=== PATIENT | female | born 1940 | race Caucasian/White ===

== ENCOUNTER → 2017-01-16 | Outpatient (CLI) | payer MEDICARE, MEDICAID ==
[~2017-01-16] MED LIST: GLIP5TAB10 PO; METF10002 PO; METF500T4 PO; QUET100T PO; QUET400T PO; QUETIAPINE PO
[2017-01-17 11:47] LABS: ASPARTATE AMINO TRANSFERASE 14 U/L (15-37); BLOOD UREA NITROGEN 20 mg/dL (7-18)
== END | disposition home or self-care (01) ==
LOC: STAR 05:12
PROVIDERS: ATTEND Urology
DX: Z01.818 Encounter for other preprocedural examination (principal); R79.1 Abnormal coagulation profile
CPT/HCPCS: 36415; 80053; 81001; 85025; 85610; 85730; 87086; 93005

== ENCOUNTER 2017-01-23 08:39 | Day surgery (SDC) | payer MEDICARE, MEDICAID ==
[~2017-01-23] VITALS: Ht 170.2 cm; Wt 86.5 kg
[2017-01-23] MEDS ORDERED: LACTATED RINGERS 1,000 ML IV SCH (10:36)
[2017-01-23 10:37] VITALS: BP 134/85
[2017-01-23] MEDS ORDERED: FENTANYL PF 100 MCG/2ML ONE ×2 (12:03→14:21)
[2017-01-23] MEDS ORDERED: ONDANSETRON 2MG/ML, 2ML ONE (12:36)
[2017-01-23] MEDS ORDERED: PROPOFOL 10 MG/ML, 20ML ONE (12:36)
[2017-01-23] MEDS ORDERED: GLYCOPYRROLATE 0.2MG/1ML ONE (12:36)
[2017-01-23] MEDS ORDERED: ROCURONIUM 10 MG/ML ONE (12:36)
[2017-01-23] MEDS ORDERED: NEOSTIGMINE 1 MG/ML, 10ML ONE (12:36)
[2017-01-23] MEDS ORDERED: CEFAZOLIN 1,000 MG ONE (12:36)
[2017-01-23] MEDS ORDERED: hydrALAzine 20 MG/ML, 1ML IV PRN (14:00)
[2017-01-23] MEDS ORDERED: ALBUTEROL SULFATE 2.5 MG/3 ML NPPB PRN (14:00)
[2017-01-23] MEDS ORDERED: ACETAMINOPHEN 325 MG TABLET PO PRN (14:00)
[2017-01-23] MEDS ORDERED: MEPERIDINE/PF 25MG/0.5ML IVPush PRN (14:00)
[2017-01-23] MEDS ORDERED: METOPROLOL 1 MG/ML, 5ML IV PRN (14:00)
[2017-01-23] MEDS ORDERED: OXYcodone 5 MG/5 ML ORAL.SOL UDC PO PRN (14:00)
[2017-01-23] MEDS ORDERED: HYDROmorphone 1 MG/ML, 1ML IV PRN (14:00)
[2017-01-23] MEDS ORDERED: OXYcodone 5 MG/5 ML ORAL.SOL UDC ONE (14:21)
[2017-01-23] MEDS: FENTANYL PF 100 MCG/2ML IV PRN ×2 (14:22→14:34)
== END 2017-01-23 15:20 ==
LOC: OUT 08:39
PROVIDERS: ATTEND Urology
DX: N20.0 Calculus of kidney (principal); I10 Essential (primary) hypertension; E11.9 Type 2 diabetes mellitus without complications; F15.90 Other stimulant use, unspecified, uncomplicated; Z79.82 Long term (current) use of aspirin; Z87.440 Personal history of urinary (tract) infections; Z87.39 Personal history of other diseases of the musculoskeletal system and connective tissue; Z98.890 Other specified postprocedural states; Z81.8 Family history of other mental and behavioral disorders
CPT/HCPCS: 50590; 52005; 74000; 82962; J0690; J2405; J2704; J2710; J3010; J7120; J3490

== ENCOUNTER 2017-06-01 02:45 | Emergency (ER) | payer MEDICARE, MEDICAID ==
[~2017-06-01] VITALS: Ht 172.7 cm; Wt 86.0 kg
[2017-06-01] MEDS ORDERED: METF500T4 PO (03:10)
[2017-06-01] MEDS ORDERED: LEVO750T26 PO (03:10)
[2017-06-01] MEDS ORDERED: QUET400T4 PO (03:10)
[2017-06-01] MEDS ORDERED: SODIUM CHLORIDE 0.9% 1,000ML IVBOLUS ONE (04:00)
[2017-06-01] MEDS ORDERED: SODIUM CHLORIDE FLUSH 10ML SYR IVF ONE (04:00)
[2017-06-01 04:13] LABS: HEMATOCRIT 40.3 % (34.6-47.8); HEMOGLOBIN 13.4 g/dL (11.7-16.4); WHITE BLOOD COUNT 7.2 x10^3/uL (3.4-10)
[2017-06-01 04:19] LABS: ASPARTATE AMINO TRANSFERASE 11 U/L (15-37); BLOOD UREA NITROGEN 14 mg/dL (7-18)
[2017-06-01] MEDS ORDERED: HYDROmorphone 1 MG/ML, 1ML IV ONE ×2 (04:30→06:00)
[2017-06-01] MEDS ORDERED: HYDROmorphone 1 MG/ML, 1ML ONE ×2 (04:51→05:44)
[2017-06-01] MEDS ORDERED: OMNIPAQUE 350 MG/ML, 100ML BOTTLE ONE (04:59)
[2017-06-01 05:05] LABS: PATH.CAST-FLAG NOT PRESENT; SPERM-FLAG NOT PRESENT; SRC-FLAG NOT PRESENT; XTAL-FLAG NOT PRESENT; YLC-FLAG NOT PRESENT
[2017-06-01] MEDS ORDERED: SODIUM CHLORIDE 0.9%, 500ML IVBOLUS ONE (06:00)
[2017-06-01 06:30] VITALS: BP 169/88
== END 2017-06-01 06:35 | disposition home or self-care (01) ==
LOC: ED 05:14
DX: R10.31 Right lower quadrant pain (principal); R10.32 Left lower quadrant pain
CPT/HCPCS: 36415; 74177; 80053; 81001; 83605; 83690; 85025; 96361; 96374; 96376; 99285; J1170; J7030; J7040; Q9967